=== PATIENT | female | born 1995 | race American Indian/Alaskan Native ===

== ENCOUNTER 2018-07-14 23:05 | Emergency (ER) | payer SELFPAY ==
--- NOTE | 2018-07-14 23:53 | EDM.PDOC ---
ED HPI GENERAL MEDICAL PROBLEM - General Chief Complaint: General Stated Complaint: high on drugs Time Seen by Provider: 07/14/18 23:38 - History of Present Illness INITIAL COMMENTS - FREE TEXT/NARRATIVE: Patient is a 23yo F brought in by mother who left prior to being seen in the ER against medical advice. Discussed patient with nursing staff at hospital. Law enforcement notified of health concerns of patient who left AMA. It does appear patient and family are from [place] and may be intoxicated from methamphetamine use. Per nursing an IV was placed and patient thought the IV was leaking and forcefully pulled it out. While mother was finding phone in the car and nursing was cleaning the blood from patient pulling out the IV she placed her boots on and ran out to the car and mother then drove daughter away from the hospital. Nursing contacted law enforcement for concern of both mother and daughter who was intoxicated. ED ROS GENERAL - Review of Systems Review Of Systems: Unable To Obtain ED EXAM, GENERAL - Physical Exam Exam: Not Obtained Course - Orders/Labs/Meds Orders: Active Orders 24 hr Category Date Time Status EKG Documentation Completion [RC] ASDIRECTED Care 07/14/18 23:39 Active B-TYPE NATRIURETIC PEPTIDE,BNP [CHEM] Stat Lab 07/14/18 23:39 Ordered CBC WITH AUTO DIFF [HEME] Stat Lab 07/14/18 23:38 Ordered COMPREHENSIVE METABOLIC PN,CMP [CHEM] Stat Lab 07/14/18 23:38 Ordered CREATINE KINASE,CK [CHEM] Stat Lab 07/14/18 23:41 Ordered HCG QUALITATIVE,URINE [URCHEM] Stat Lab 07/14/18 23:39 Ordered INR,PT,PROTHROMBIN TIME [COAG] Stat Lab 07/14/18 23:39 Ordered LACTIC ACID [CHEM] Stat Lab 07/14/18 23:41 Ordered TROPONIN I [CHEM] Stat Lab 07/14/18 23:39 Ordered TSH ULTRASENSITIVE [CHEM] Stat Lab 07/14/18 23:38 Ordered EKG 12 Lead [EK] Routine Ther 07/14/18 23:39 Ordered Departure - Departure Time of Disposition: 23:30 Disposition: Eloped 07 Condition: Undetermined Clinical Impression: Eloped from emergency department, Left against medical advice - Discharge Information - Problem List & Annotations (1) Left against medical advice SNOMED Code(s): 010701130 Code(s): Z53.20 - PROC/TRTMT NOT CRD OUT BEC PT DECISION FOR UNSP REASONS Status: Acute Annotation/Comment:: Possible methamphetamine intoxication. - Problem List Review Problem List Initiated/Reviewed/Updated: Yes - My Orders Last 24 Hours: My Active Orders 07/14/18 23:38 CBC WITH AUTO DIFF [HEME] Stat COMPREHENSIVE METABOLIC PN,CMP [CHEM] Stat TSH ULTRASENSITIVE [CHEM] Stat 07/14/18 23:39 EKG Documentation Completion [RC] ASDIRECTED B-TYPE NATRIURETIC PEPTIDE,BNP [CHEM] Stat HCG QUALITATIVE,URINE [URCHEM] Stat INR,PT,PROTHROMBIN TIME [COAG] Stat TROPONIN I [CHEM] Stat EKG 12 Lead [EK] Routine 07/14/18 23:41 CREATINE KINASE,CK [CHEM] Stat LACTIC ACID [CHEM] Stat - Assessment/Plan Last 24 Hours: My Active Orders 07/14/18 23:38 CBC WITH AUTO DIFF [HEME] Stat COMPREHENSIVE METABOLIC PN,CMP [CHEM] Stat TSH ULTRASENSITIVE [CHEM] Stat 07/14/18 23:39 EKG Documentation Completion [RC] ASDIRECTED B-TYPE NATRIURETIC PEPTIDE,BNP [CHEM] Stat HCG QUALITATIVE,URINE [URCHEM] Stat INR,PT,PROTHROMBIN TIME [COAG] Stat TROPONIN I [CHEM] Stat EKG 12 Lead [EK] Routine 07/14/18 23:41 CREATINE KINASE,CK [CHEM] Stat LACTIC ACID [CHEM] Stat Plan: Nursing contacted law enforcement. We will await if patient returns or is returned to the ER by law enforcement. Patient eloped prior to being seen in the ER. Mother was in car and apparently drove off or home prior to my arrival in ER.
== END 2018-07-14 23:35 | disposition left against medical advice (07) ==
LOC: LB.ED 23:05
DX: Z53.21 Procedure and treatment not carried out due to patient leaving prior to being seen by health care provider (principal)
CPT/HCPCS: 99281